=== PATIENT | female | born 1960 | race Two or more races ===

== ENCOUNTER 2018-03-23 04:30 | Emergency (ER) | payer SELFPAY ==
[2018-03-23] MEDS ORDERED: NORMAL SALINE 1000 ML 1,000 ML IV ONE ×2 (05:07→06:26)
[2018-03-23] MEDS ORDERED: ONDANSETRON HCL INJ/PF 4 MG/2 ML SDV IV ONE ×2 (05:07→07:03)
[2018-03-23] MEDS ORDERED: MORPHINE SULFATE 10 MG/ML INJ IV ONE (05:07)
--- NOTE | 2018-03-23 05:13 | ER Document Report ---
ED GI/ - General Chief Complaint: Abdominal Pain Stated Complaint: ABDOMINAL PAIN Time Seen by Provider: 03/23/18 05:00 Mode of Arrival: Ambulatory Information source: Patient Notes: Patient is a 57-year-old female with past medical history of hypertension hyperlipidemia who presents with chief complaint of right flank pain that radiates into her right lower quadrant. Patient reports the pain started yesterday morning, has been constant with waves of increased intensity. Patient reports she has vomited approximately 4 times since its onset, has also had one episode of diarrhea yesterday. Patient reports she has been having dysuria and difficulty passing urine for a couple of days, states she took Azo with no relief. Patient reports chills but denies fevers. Patient denies any history of kidney stones. Patient has no history of any abdominal surgeries. TRAVEL OUTSIDE OF THE [place] IN LAST 30 DAYS: No - Related Data Allergies/Adverse Reactions: No Known Allergies Allergy (Verified 03/23/18 04:31) Past Medical History - General Information source: Patient - Social History Smoking Status: Never Smoker Frequency of alcohol use: None Drug Abuse: None Family History: Reviewed & Not Pertinent - Past Medical History Cardiac Medical History: Reports: Hx Hypercholesterolemia, Hx Hypertension Surgical Hx: Negative - Immunizations Immunizations up to date: Yes Review of Systems - Review of Systems Constitutional: Chills. denies: Fever, Weakness EENT: No symptoms reported Cardiovascular: No symptoms reported Respiratory: No symptoms reported Gastrointestinal: Abdominal pain, Diarrhea, Nausea, Vomiting. denies: Blood streaked bowels, Blood in vomit Genitourinary: Dysuria, Flank pain Female Genitourinary: No symptoms reported Musculoskeletal: No symptoms reported Skin: No symptoms reported Hematologic/Lymphatic: No symptoms reported Neurological/Psychological: No symptoms reported Physical Exam - Vital signs Vitals: Temp Pulse Resp BP Pulse Ox 98.4 F 71 20 172/77 H 100 03/23/18 04:31 03/23/18 04:31 03/23/18 04:31 03/23/18 04:31 03/23/18 04:31 - Notes Notes: PHYSICAL EXAMINATION: GENERAL: Well appearing, well-nourished and in moderate distress. HEAD: Atraumatic, normocephalic. EYES: Pupils equal round and reactive to light, extraocular movements intact, conjunctiva are normal. ENT: Moist mucous membranes. NECK: Normal range of motion, supple without lymphadenopathy LUNGS: Breath sounds clear to auscultation bilaterally and equal. No wheezes rales or rhonchi. HEART: Regular rate and rhythm without murmurs ABDOMEN: Soft, nondistended abdomen. Tenderness to palpation from mid right flank to right lower quadrant. No guarding, no rebound. No masses appreciated. Female : CVA tenderness to right side Musculoskeletal: Normal range of motion, no pitting or edema. No cyanosis. NEUROLOGICAL: Cranial nerves grossly intact. Normal speech. Normal sensory, motor exams PSYCH: Normal mood, normal affect. SKIN: Warm, Dry, normal turgor, no rashes or lesions noted. Course - Re-evaluation Re-evalutation: CBC with mild leukocytosis. CMP is unremarkable. Urinalysis reveals moderate blood. CT renal stone study reveals a 0.4 cm renal calculi at the right UVJ. There is mild hydroureter but no hydronephrosis. Patient is feeling much improved after administration of IV fluids and pain medications. Patient will be discharged home in stable condition. - Vital Signs Vital signs: Temp Pulse Resp BP Pulse Ox 98.0 F 68 16 114/54 L 96 03/23/18 08:08 03/23/18 08:08 03/23/18 08:08 03/23/18 08:08 03/23/18 08:08 - Laboratory Result Diagrams: 03/23/18 05:00 03/23/18 05:00 Laboratory results interpreted by me: 03/23/18 03/23/18 03/23/18 05:00 05:00 05:45 WBC 13.1 H Seg Neutrophils % 87.6 H Lymphocytes % 8.2 L Absolute Neutrophils 11.5 H Glucose 129 H Calcium 10.5 H Urine Ketones TRACE H Urine Blood MODERATE H Discharge - Discharge Clinical Impression: Kidney stone on right side, Pelvic mass Vomiting Qualifiers: Vomiting type: unspecified Vomiting Intractability: non-intractable Nausea presence: with nausea Qualified Code(s): R11.2 - Nausea with vomiting, unspecified Condition: Stable Disposition: HOME, SELF-CARE Additional Instructions: Kidney Stone You are passing or have passed a kidney stone. These stones are usually due to increased calcium or uric acid concentrations in your urine. Stones within the kidney itself are not painful. The pain occurs as the stone leaves the kidney to pass down the long tube, called the ureter, leading to the bladder. If the stone is small, it will usually pass by itself. Most patients can pass the stone at home. You will usually receive medications for pain, nausea or vomiting, and sometimes a medication to assist in passing the kidney stone. However, if the pain is very severe or if vomiting prevents you from taking oral pain medications, you may need to return for further treatment. Drink three or four quarts of fluids per day. You will be given pain medication (if needed) and urine strainers. Strain all your urine to see if the stone passes. If your doctor has asked you to bring the stone in for analysis, return with the stone once it has passed. Return if pain or vomiting become severe, if you develop a high fever, if you are unable to pass your urine, or if other unusual symptoms occur. Please take the Flomax 1 time per day, you have already had your dose for this morning. Please take ibuprofen 600 mg every 6 hours for the next few days. Please use the narcotic pain medication only for severe pain. Use the nausea medication as needed, you can take the Zofran under the tongue or use the Phenergan suppositories for any nausea or vomiting. The kidney stone should pass soon. As discussed a mass was found in the pelvic region on the CAT scan that was performed. I spoke with Dr. Harp at [facility] and he has agreed to see you in the office Sunday or Sunday. Please call him in the morning on Sunday let them know you are seen in the emerge since he department need an ER follow-up for a large pelvic mass. Please feel free to return to the emergency department if you develop any worsening symptoms over the weekend, we are happy to reevaluate you at any time. [facility] [address] [place] [id number] Prescriptions: Morphine Sulfate [Morphine Ir 15 mg Tablet] 15 mg PO Q4HP PRN #12 tablet PRN Reason: Ondansetron [Zofran Odt 4 mg Tablet] 1 - 2 tab PO Q4H PRN #15 tab.rapdis PRN Reason: For Nausea/Vomiting Tamsulosin HCl [Flomax 0.4 mg Cap.sr] 0.4 mg PO DAILY #7 cap.sr.24h Referrals: POLY HARP MD [ACTIVE STAFF] - Follow up as needed
[2018-03-23 05:28] LABS: ABSOLUTE EOSINOPHILS # (AUTO) 0.1 10^3/uL (0.0-0.6); ABSOLUTE LYMPHOCYTES (AUTO) 1.1 10^3/uL (0.5-4.7); ABSOLUTE MONOCYTES (AUTO) 0.5 10^3/uL (0.1-1.4); ABSOLUTE NEUT (AUTO) 11.5 10^3/uL (1.7-8.2); BASOPHILS % (AUTO) 0.2 % (0-2); EOSINOPHILS % (AUTO) 0.4 % (0-6); HEMATOCRIT 42.2 % (36.0-47.0); HEMOGLOBIN 14.6 g/dL (12.0-15.5); LYMPHOCYTES % (AUTO) 8.2 % (13-45); MEAN CORPUSCULAR HEMOGLOBIN 29.2 pg (27.0-33.4); MEAN CORPUSCULAR HGB CONC 34.7 g/dL (32.0-36.0); MEAN CORPUSCULAR VOLUME 84 fl (80-97); MONOCYTES % (AUTO) 3.6 % (3-13); PLATELET COUNT 389 10^3/uL (150-450); RED BLOOD COUNT 5.01 10^6/uL (3.72-5.28); RED CELL DISTRIBUTION WIDTH 13.1 % (11.5-14.0); SEGMENTED NEUTROPHILS % (AUTO) 87.6 % (42-78); TOTAL CELLS COUNTED % (AUTO) 100 %; WHITE BLOOD COUNT 13.1 10^3/uL (4.0-10.5)
[2018-03-23] MEDS ORDERED: KETOROLAC TROMETHAMINE INJ/PF 30 MG/1 ML SDV IV ONE (05:48)
[2018-03-23 06:11] LABS: ALANINE AMINOTRANSFERASE 33 U/L (9-52); ALBUMIN 4.7 g/dL (3.5-5.0); ALKALINE PHOSPHATASE 113 U/L (38-126); ANION GAP 14 (5-19); ASPARTATE AMINO TRANSFERASE 28 U/L (14-36); BILIRUBIN,DIRECT 0.3 mg/dL (0.0-0.4); BILIRUBIN,TOTAL 0.4 mg/dL (0.2-1.3); BLOOD UREA NITROGEN 16 mg/dL (7-20); CALCIUM 10.5 mg/dL (8.4-10.2); CARBON DIOXIDE 25 mmol/L (22-30); CHLORIDE 105 mmol/L (98-107); GLUCOSE 129 mg/dL (75-110); LIPASE 79.9 U/L (23-300); POTASSIUM 4.2 mmol/L (3.6-5.0); SODIUM 144.4 mmol/L (137-145)
[2018-03-23 06:12] LABS: APPEARANCE,URINE CLEAR; BILIRUBIN,URINE NEGATIVE (NEGATIVE); CALCIUM OXALATE CRYSTALS,URINE RARE /HPF; COLOR,URINE YELLOW; GLUCOSE, URINE NEGATIVE (NEGATIVE); KETONES,URINE TRACE mg/dL (NEGATIVE); LEUKOCYTE ESTERASE,URINE NEGATIVE (NEGATIVE); NITRITE,URINE NEGATIVE (NEGATIVE); PROTEIN,URINE NEGATIVE (NEGATIVE); URINE SPECIFIC GRAVITY 1.015; UROBILINOGEN,URINE NEGATIVE mg/dL (<2.0)
--- NOTE | 2018-03-23 06:26 | RADIOLOGY REPORT (SQ) ---
EXAM DESCRIPTION: CT ABDOMEN WITHOUT IV CONTRAST COMPLETED DATE/TME: 03/23/2018 05:49 CLINICAL HISTORY: Right lower quadrant pain. COMPARISON: None Available. TECHNIQUE: CT of the abdomen and pelvis without IV contrast. Evaluation of the solid organs and vasculature is suboptimal due to lack of IV contrast. DLP: 835.58 mGy-cm FINDINGS: Lung Bases: The visualized lung bases are clear. Bones: No destructive bone lesions identified. Abdomen: Liver: The liver has normal size and density. Gallbladder: Calcified gallstones identified. No pericholecystic inflammatory change. Spleen, Pancreas, and Adrenal Glands: The spleen, pancreas, and adrenal glands are unremarkable. Kidneys: There is a 0.4 cm obstructing calculus at the right UVJ producing moderate right hydroureter and hydronephrosis. No left-sided hydronephrosis. Vasculature: The aorta and IVC have normal caliber and position. Stomach: The stomach and duodenum have normal course. Other: No free intraperitoneal air. No free fluid or lymphadenopathy. Pelvis: Bladder: Urinary bladder is unremarkable. Bowel: No dilated loops of large or small bowel. Scattered diverticula of the colon without pericolic inflammatory change. Appendix: Normal appendix. Pelvis: Likely fibroid uterus. There is a large heterogeneous mass arising from the right pelvis and extending into the mid right abdomen measuring at least 16.6 x 10.5 x 12.4 cm. This structure as well as solid and cystic components. Additionally posterior to the uterus there is a second heterogeneous mass measuring at least 8.5 x 7.4 cm in greatest axial dimensions. This also has both solid and cystic component. No definite pelvic lymphadenopathy identified. IMPRESSION: 1. There is a 0.4 cm obstructing calculus at the right UVJ producing moderate right hydroureter and hydronephrosis. 2. There are 2 heterogeneous pelvic masses containing both solid and cystic components. The largest of these measures at least 16.6 cm in greatest dimension. These are concerning for benign or malignant ovarian neoplasm. Contrast-enhanced pelvic MRI and gynecological consultation recommended. 3. Cholelithiasis. Urgent finding reported to HAMMERER TAB Ayb Hodgson at 03/23/2018 5:24 AM CDT This exam was performed according to our departmental dose-optimization program, which includes automated exposure control, adjustment of the mA and/or kV according to patient size and/or use of iterative reconstruction technique.
[2018-03-23] MEDS ORDERED: HYDROMORPHONE HCL INJ/PF 2 MG/ML AMPULE IV ONE (06:27)
[2018-03-23] MEDS ORDERED: TAMSULOSIN HCL 0.4 MG CAP.SR.24H PO ONE (06:57)
[2018-03-23] MEDS ORDERED: HYDROCODONE/ACETAMINOPHEN 5-325 MG (6 TAB/ER DISP) PO PRN (06:57)
[2018-03-23] MEDS ORDERED: IBUPROFEN 600 MG TABLET PO ONE (06:57)
[2018-03-23] MEDS ORDERED: OXYCODONE-ACETAMINOPHEN 5-325 MG TABLET PO ONE (06:59)
[2018-03-23] MEDS ORDERED: ONDANSETRON ODT 4 MG TAB (6 TAB/ER DISP) PO PRN (06:59)
[2018-03-23] MEDS ORDERED: PROMETHAZINE HCL 25 MG SUPP (4 SUPP/ER DISP) PR ONE (07:03)
[2018-03-23] MEDS ORDERED: PROCHLORPERAZINE EDISYLATE INJ 10 MG/2 ML VIAL IV ONE (08:08)
[2018-03-23 08:09] VITALS: BP 114/54
== END 2018-03-23 08:53 | disposition home or self-care (01) ==
LOC: ER 04:30
DX: N20.0 Calculus of kidney (principal); R19.00 Intra-abdominal and pelvic swelling, mass and lump, unspecified site; R11.2 Nausea with vomiting, unspecified; R68.83 Chills (without fever); R10.9 Unspecified abdominal pain; I10 Essential (primary) hypertension; E78.00 Pure hypercholesterolemia, unspecified
CPT/HCPCS: 96376; 99284; 96361; 96374; 96375; 36415; 87086; 83690; 85025; 80053; 81001; 76380; J3490; J1885; J2270; J1170; J0780; J2405; J7030

== ENCOUNTER 2020-01-05 19:05 | Emergency (ER) | payer SELFPAY ==
[2020-01-05] MEDS ORDERED: KETOROLAC TROMETHAMINE INJ/PF 30 MG/1 ML SDV IV ONE (19:50)
--- NOTE | 2020-01-05 20:01 | ER Document Report ---
ED GI/ - General Chief Complaint: Possible Kidney Stone Stated Complaint: POSSIBLE KIDNEY STONE Time Seen by Provider: 01/05/20 19:35 Primary Care Provider: [facility] [Provider Group] - Follow up as needed MALU BRENNER MD [Primary Care Provider] - Follow up as needed Notes: HPI: 59-year-old female who presents today with the onset about 3 days ago some intermittent left flank pain radiating to her left abdomen. She describes it as "sharp". No obvious aggravating relieving factors. Positive dysuria. No fevers or vomiting. History of kidney stones x2 in the past without extraction or lithotripsy. Currently pain is a 4 out of 10. ROS: See HPI All other review of systems reviewed and otherwise negative Reviewed vital signs and nursing note as charted by RN. PHYSICAL EXAM: CONSTITUTIONAL: Alert and oriented and responds appropriately to questions. Well-appearing; well-nourished HEAD: Normocephalic; atraumatic CARD: Regular rate and rhythm; no murmurs; symmetric distal pulses RESP: Normal chest excursion without splinting or tachypnea; breath sounds clear and equal bilaterally; no wheezes, no rhonchi, no rales ABD/GI: Normal bowel sounds; non-distended; soft, minimally tender to palpation of the left lower quadrant without rebound or guarding. No palpable masses BACK: The back appears normal and is non-tender to palpation EXT: Normal ROM in all joints; non-tender to palpation; no edema SKIN: No acute lesions noted NEURO: CN 2-12 intact; 5/5 bilateral upper and lower extremity strength with sensation intact to light touch PSYCH: The patient's mood and manner are appropriate. Grooming and personal hygiene are appropriate. TRAVEL OUTSIDE OF THE [place] IN LAST 30 DAYS: No - Related Data Allergies/Adverse Reactions: No Known Allergies Allergy (Verified 03/23/18 04:31) Past Medical History - Social History Smoking Status: Unknown if Ever Smoked Family History: Reviewed & Not Pertinent - Past Medical History Cardiac Medical History: Reports: Hx Hypercholesterolemia, Hx Hypertension Renal/ Medical History: Denies: Hx Peritoneal Dialysis - Immunizations Immunizations up to date: Yes Physical Exam - Vital signs Vitals: Temp Pulse Resp BP Pulse Ox 98.7 F 103 H 17 123/72 96 01/05/20 19:21 01/05/20 19:21 01/05/20 19:21 01/05/20 19:21 01/05/20 19:21 Course - Re-evaluation Re-evalutation: 01/05/20 20:00 Given the above history and physical examination with the patient's history, I will obtain a renal colic CT scan as well as basic labs and urine analysis. I would like to assess initially for the possibility of kidney stone. 01/05/20 21:[address] scan as recorded. Nitrite positive with minimal white blood cells in the urine. Normal white blood cell count. No fevers or vomiting. 1 g of Rocephin has been provided. I will start the patient on a course of antibiotics and pain medications with discharge home with follow-up with urology. - Vital Signs Vital signs: Temp Pulse Resp BP Pulse Ox 98.7 F 103 H 17 123/72 96 01/05/20 20:00 01/05/20 19:21 01/05/20 19:21 01/05/20 19:21 01/05/20 19:21 - Laboratory Result Diagrams: 01/05/20 19:57 01/05/20 19:57 Laboratory results interpreted by me: 01/05/20 01/05/20 19:55 19:57 Glucose 113 H ALT 38 H Urine Blood SMALL H Urine Nitrite POSITIVE H Urine Urobilinogen 4.0 H Discharge - Discharge Clinical Impression: Kidney stone on left side Condition: Good Disposition: HOME, SELF-CARE Additional Instructions: Come back immediately with any increased pain, change in location or quality of pain, fevers or vomiting, or any other acute problems. Please make sure that you follow-up with the primary care physician and urologist as discussed. You may take 600 mg of ibuprofen every 6 hours in addition to the pain medications that we have provided. Please make sure that she take the antibiotics as prescribed. Prescriptions: Cephalexin Monohydrate [Keflex 500 mg Capsule] 500 mg PO Q6H 5 Days capsule Cephalexin Monohydrate [Keflex 500 mg Capsule] 500 mg PO Q6H 5 Days capsule Cephalexin Monohydrate [Keflex 500 mg Capsule] 500 mg PO Q6H 5 Days capsule Cephalexin Monohydrate [Keflex 500 mg Capsule] 500 mg PO Q6H 5 Days capsule Cephalexin Monohydrate [Keflex 500 mg Capsule] 500 mg PO Q6H 5 Days capsule Cephalexin Monohydrate [Keflex 500 mg Capsule] 500 mg PO Q6H 5 Days capsule Cephalexin Monohydrate [Keflex 500 mg Capsule] 500 mg PO Q6H 5 Days capsule Hydrocodone/Acetaminophen [Jacobson 5-325 mg Tablet] 1 tab PO Q8 #10 tablet Referrals: MALU BRENNER MD [Primary Care Provider] - Follow up as needed [facility] [Provider Group] - Follow up as needed
[2020-01-05 20:07] LABS: ABSOLUTE EOSINOPHILS # (AUTO) 0.2 10^3/uL (0.0-0.6); ABSOLUTE MONOCYTES (AUTO) 0.5 10^3/uL (0.1-1.4); BASOPHILS % (AUTO) 0.6 % (0-2); MEAN CORPUSCULAR HEMOGLOBIN 29.1 pg (27.0-33.4); TOTAL CELLS COUNTED % (AUTO) 100 %
[2020-01-05 20:12] LABS: APPEARANCE,URINE CLEAR; BILIRUBIN,URINE NEGATIVE (NEGATIVE); GLUCOSE, URINE NEGATIVE (NEGATIVE); KETONES,URINE NEGATIVE (NEGATIVE); LEUKOCYTE ESTERASE,URINE NEGATIVE (NEGATIVE); NITRITE,URINE POSITIVE (NEGATIVE); PROTEIN,URINE NEGATIVE (NEGATIVE); URINE SPECIFIC GRAVITY 1.017
[2020-01-05 20:14] LABS: COLOR,URINE YELLOW
[2020-01-05] MEDS: MORPHINE SULFATE 10 MG/ML INJ IV ONE ×2 (20:17→20:21)
[2020-01-05 20:18] LABS: ABSOLUTE LYMPHOCYTES (AUTO) 1.8 10^3/uL (0.5-4.7); EOSINOPHILS % (AUTO) 2.7 % (0-6); HEMATOCRIT 40.9 % (36.0-47.0); HEMOGLOBIN 13.8 g/dL (12.0-15.5); LYMPHOCYTES % (AUTO) 23.7 % (13-45); MEAN CORPUSCULAR HGB CONC 33.8 g/dL (32.0-36.0); MEAN CORPUSCULAR VOLUME 86 fl (80-97); MONOCYTES % (AUTO) 6.2 % (3-13); PLATELET COUNT 351 10^3/uL (150-450); RED BLOOD COUNT 4.77 10^6/uL (3.72-5.28); RED CELL DISTRIBUTION WIDTH 13.2 % (11.5-14.0); SEGMENTED NEUTROPHILS % (AUTO) 66.8 % (42-78); WHITE BLOOD COUNT 7.5 10^3/uL (4.0-10.5)
[2020-01-05] MEDS ORDERED: CEFTRIAXONE 1 GM/D5W RTU 1 GM/50 ML RTUPB IV ONE (20:19)
[2020-01-05 20:29] LABS: ALBUMIN 4.4 g/dL (3.5-5.0); ALKALINE PHOSPHATASE 96 U/L (38-126); ANION GAP 9 (5-19); ASPARTATE AMINO TRANSFERASE 34 U/L (14-36); BILIRUBIN,TOTAL 0.3 mg/dL (0.2-1.3); BLOOD UREA NITROGEN 15 mg/dL (7-20); CALCIUM 10.2 mg/dL (8.4-10.2); CARBON DIOXIDE 27 mmol/L (22-30); CHLORIDE 105 mmol/L (98-107); GLUCOSE 113 mg/dL (75-110); TOTAL PROTEIN 7.5 g/dL (6.3-8.2)
[2020-01-05] MEDS ORDERED: MORPHINE SULFATE 10 MG/ML INJ IV ONE (20:43)
--- NOTE | 2020-01-05 21:05 | RADIOLOGY REPORT (SQ) ---
EXAM DESCRIPTION: CLINICAL HISTORY: 59 years Female 35; left flank COMPARISON: Renal ultrasound 03/23/2018. TECHNIQUE: Axial images without IV or oral contrast. Sagittal coronal reconstruction. This exam was performed according to our departmental dose-optimization program, which includes automated exposure control, adjustment of the mA and/or kV according to patient size and/or use of iterative reconstruction technique.. FINDINGS: Lung bases are unremarkable. Fatty liver. Gallbladder filled with multiple stones. No gallbladder distention or wall thickening. No biliary dilatation. Spleen, pancreas, adrenal glands, aorta and para-aortic regions are unremarkable. Right kidney is unremarkable. Left kidney demonstrates minimal hydronephrosis. There is also minimal left hydroureter. Suspected tiny approximately 1 mm stone nonobstructing stone in the lower pole of the left kidney. Series 601 image 52. No suspicious bowel or peritoneal abnormalities. CT of the pelvis demonstrates approximately 1.5 mm calcification calcification projecting in the expected location of the left UV junction. The distal left ureter is not clearly identified. Urinary bladder is otherwise unremarkable. Absent uterus. Surgical clips in the right adnexa. Bowel loops are unremarkable. No free fluid or adenopathy. IMPRESSION: 1. Minimal left hydronephrosis and left proximal hydroureter. Distal left ureter not definitely identified. There is a tiny stone in the expected location of the left UV junction. There is a tiny nonobstructing left lower pole kidney stone. 2. Multiple gallstones in a contracted gallbladder. 3. Fatty liver.
[2020-01-05 21:56] VITALS: BP 105/60
== END 2020-01-05 21:57 | disposition home or self-care (01) ==
LOC: ER 19:05
DX: N13.2 Hydronephrosis with renal and ureteral calculous obstruction (principal); K80.20 Calculus of gallbladder without cholecystitis without obstruction; K76.0 Fatty (change of) liver, not elsewhere classified; R30.0 Dysuria; R10.9 Unspecified abdominal pain; R10.814 Left lower quadrant abdominal tenderness
CPT/HCPCS: 99284; 96375; 96365; 36415; 85025; 80053; 81001; 74176; J1885; J0696; J2270

== ENCOUNTER → 2020-05-24 | Outpatient (CLI) | payer OTHER ==
--- NOTE | 2020-05-24 15:38 | RADIOLOGY REPORT (SQ) ---
"EXAM DESCRIPTION: KNEE RIGHT 2 VIEWS IMAGES COMPLETED DATE/TIME: 05/24/2020 3:11 pm REASON FOR STUDY: M25.561 PAIN IN RIGHT KNEE R06.02 SHORTNESS OF BREATH M25.561 PAIN IN RIGHT KNEE COMPARISON: None. NUMBER OF VIEWS: Two views. TECHNIQUE: AP and lateral radiographic images acquired of the right knee. LIMITATIONS: None. FINDINGS: MINERALIZATION: Normal. BONES: No acute fracture or dislocation. No worrisome bone lesions. No significant osteophytes. JOINT: No effusion. No chondrocalcinosis. OTHER: No other significant finding. IMPRESSION: NEGATIVE STUDY OF THE RIGHT KNEE. NO EXPLANATION FOR PAIN. TECHNICAL DOCUMENTATION: JOB ID: [id number] 2010 [employer] | [employer]- All Rights Reserved Reading location - IP/workstation name: [email or web address]"
--- NOTE | 2020-05-24 15:39 | RADIOLOGY REPORT (SQ) ---
EXAM DESCRIPTION: CHEST 2 VIEWS IMAGES COMPLETED DATE/TIME: 05/24/2020 3:11 pm REASON FOR STUDY: R06.02 SHORTNESS OF BREATH COMPARISON: None. EXAM PARAMETERS: NUMBER OF VIEWS: two views TECHNIQUE: Digital Frontal and Lateral radiographic views of the chest acquired. RADIATION DOSE: NA LIMITATIONS: none FINDINGS: LUNGS AND PLEURA: Focal asymmetric opacity in the left upper lobe overlying the anterior 1 st rib and clavicle most likely represents confluence of shadows. This also overlies the 8th posteri or rib. There is no consolidation. No effusions or pneumothorax. MEDIASTINUM AND HILAR STRUCTURES: No masses or contour abnormalities. HEART AND VASCULAR STRUCTURES: Heart normal size. No evidence for failure. BONES: No acute findings. HARDWARE: None in the chest. OTHER: No other significant finding. IMPRESSION: NO ACUTE RADIOGRAPHIC FINDING IN THE CHEST. TECHNICAL DOCUMENTATION: JOB ID: [id number] 2010 [employer] - [email or web address]- All Rights Reserved Reading location - IP/workstation name: [email or web address]
== END ==
LOC: RAD 14:50
PROVIDERS: ATTEND Nurse Practitioner Family
DX: R06.02 Shortness of breath (principal); M25.561 Pain in right knee
CPT/HCPCS: 71046

== ENCOUNTER 2020-06-15 11:54 | Emergency (ER) | payer OTHER ==
--- NOTE | 2020-06-15 13:04 | ER Document Report ---
ED Medical Screen (RME) - General Chief Complaint: Chest Pain > 30 Stated Complaint: DIFFICULTY BREATHING,CHEST PRESSURE Time Seen by Provider: 06/15/20 12:57 Primary Care Provider: KIT MEREDITH FNP [Primary Care Provider] - Follow up as needed Mode of Arrival: Ambulatory Information source: Patient Notes: 59-year-old female presents to ED for chest pressure feels like somebody squeezing her short of breath. She does have asthma and states her asthma medicines are not doing her any good for this pain and pressure patient is alert and oriented. Lungs are clear at this time. Chest pain protocol and have her seen by another provider. TRAVEL OUTSIDE OF THE [place] IN LAST 30 DAYS: No - Related Data Allergies/Adverse Reactions: No Known Allergies Allergy (Verified 03/23/18 04:31) Past Medical History - Past Medical History Cardiac Medical History: Reports: Hx Hypercholesterolemia, Hx Hypertension Renal/ Medical History: Denies: Hx Peritoneal Dialysis - Immunizations Immunizations up to date: Yes Physical Exam - Vital signs Vitals: Temp Pulse Resp BP Pulse Ox 98.4 F 56 L 18 112/65 98 06/15/20 12:11 06/15/20 12:11 06/15/20 12:11 06/15/20 12:11 06/15/20 12:11 Course - Vital Signs Vital signs: Temp Pulse Resp BP Pulse Ox 98.4 F 56 L 18 112/65 98 06/15/20 12:11 06/15/20 12:11 06/15/20 12:11 06/15/20 12:11 06/15/20 12:11 Doctor's Discharge - Discharge Referrals: KIT MEREDITH FNP [Primary Care Provider] - Follow up as needed
[2020-06-15 13:39] LABS: ABSOLUTE EOSINOPHILS # (AUTO) 0.1 10^3/uL (0.0-0.6); ABSOLUTE LYMPHOCYTES (AUTO) 1.5 10^3/uL (0.5-4.7); ABSOLUTE MONOCYTES (AUTO) 0.4 10^3/uL (0.1-1.4); ABSOLUTE NEUT (AUTO) 4.7 10^3/uL (1.7-8.2); BASOPHILS % (AUTO) 0.4 % (0-2); EOSINOPHILS % (AUTO) 1.6 % (0-6); HEMATOCRIT 44.1 % (36.0-47.0); HEMOGLOBIN 14.9 g/dL (12.0-15.5); LYMPHOCYTES % (AUTO) 22.1 % (13-45); MEAN CORPUSCULAR HEMOGLOBIN 29.2 pg (27.0-33.4); MEAN CORPUSCULAR HGB CONC 33.9 g/dL (32.0-36.0); MEAN CORPUSCULAR VOLUME 86 fl (80-97); MONOCYTES % (AUTO) 6.2 % (3-13); PLATELET COUNT 380 10^3/uL (150-450); RED CELL DISTRIBUTION WIDTH 13.2 % (11.5-14.0); SEGMENTED NEUTROPHILS % (AUTO) 69.7 % (42-78); TOTAL CELLS COUNTED % (AUTO) 100 %; WHITE BLOOD COUNT 6.7 10^3/uL (4.0-10.5)
[2020-06-15 13:56] LABS: ALBUMIN 4.9 g/dL (3.5-5.0); ALKALINE PHOSPHATASE 107 U/L (38-126); ANION GAP 9 (5-19); ASPARTATE AMINO TRANSFERASE 32 U/L (14-36); BILIRUBIN,DIRECT 0.1 mg/dL (0.0-0.4); BILIRUBIN,TOTAL 0.5 mg/dL (0.2-1.3); BLOOD UREA NITROGEN 16 mg/dL (7-20); CALCIUM 11.1 mg/dL (8.4-10.2); CARBON DIOXIDE 28 mmol/L (22-30); CHLORIDE 104 mmol/L (98-107); GLUCOSE 101 mg/dL (75-110); POTASSIUM 5.1 mmol/L (3.6-5.0); TOTAL PROTEIN 8.2 g/dL (6.3-8.2)
--- NOTE | 2020-06-15 15:46 | ER Document Report ---
ED General - General Chief Complaint: Chest Pain > 30 Stated Complaint: DIFFICULTY BREATHING,CHEST PRESSURE Time Seen by Provider: 06/15/20 12:57 Primary Care Provider: KIT MEREDITH FNP [NO LOCAL MD] - Follow up as needed Mode of Arrival: Ambulatory Information source: Patient Notes: Patient is a 59-year-old female presenting to the emergency department chief co mplaint of chest pain. Patient states that it started about 9 or 10:00 this morning and did not subside. Patient was dizziness and near syncopal during the worst of the chest pain. Patient reports shortness of breath. Patient denies travel history trauma history sick contacts no recent change in medications. Patient does have a prior history of asthma states this is nothing like her asthma attacks. TRAVEL OUTSIDE OF THE [place] IN LAST 30 DAYS: No - HPI Onset: This morning Onset/Duration: Sudden, Persistent Quality of pain: Pressure, Sharp Severity: Severe Pain Level: 4 Associated symptoms: Nausea, Shortness of breath Exacerbated by: Denies Relieved by: Denies Similar symptoms previously: No Recently seen / treated by doctor: No - Related Data Allergies/Adverse Reactions: No Known Allergies Allergy (Verified 03/23/18 04:31) Home Medications: Fish Oil. Baby ASA. Albuterol. Lisinopril Past Medical History - General Information source: Patient - Social History Smoking Status: Former Smoker Chew tobacco use (# tins/day): No Frequency of alcohol use: Rare Drug Abuse: None Lives with: Spouse/Significant other Family History: CAD, CVA, Hypertension Patient has suicidal ideation: No Patient has homicidal ideation: No - Past Medical History Cardiac Medical History: Reports: Hx Hypercholesterolemia, Hx Hypertension Pulmonary Medical History: Reports: Hx Asthma Renal/ Medical History: Denies: Hx Peritoneal Dialysis Past Surgical History: Reports: Hx Hysterectomy - Immunizations Immunizations up to date: Yes Review of Systems - Review of Systems Notes: REVIEW OF SYSTEMS: CONSTITUTIONAL : Denies fever, chills, or sweats. Denies recent illness. EENT: Denies eye, ear, throat, or mouth pain or symptoms. Denies nasal or sinus congestion. CARDIOVASCULAR: Per HPI RESPIRATORY: Per HPI GASTROINTESTINAL: Denies abdominal pain. Denies nausea, vomiting, or diarrhea. Denies constipation. GENITOURINARY: Denies difficulty urinating, painful urination, burning, frequency, or blood in urine. MUSCULOSKELETAL: Denies neck or back pain or joint pain or swelling. SKIN: Denies rash or skin lesions. HEMATOLOGIC : Denies easy bruising or bleeding. NEUROLOGICAL: Per HPI PSYCHIATRIC: Denies suicidal or homicidal ideations 10 Systems are negative unless otherwise specified above Physical Exam - Vital signs Vitals: Temp Pulse Resp BP Pulse Ox 98.4 F 56 L 18 112/65 98 06/15/20 12:11 06/15/20 12:11 06/15/20 12:11 06/15/20 12:11 06/15/20 12:11 - Notes Notes: PHYSICAL EXAMINATION: GENERAL: Patient is a 59-year-old female presenting to the emergency department chief complaint of chest pain HEAD: Atraumatic, normocephalic. EYES: Pupils equal round and reactive to light, extraocular movements intact, sclera anicteric, conjunctiva are normal. ENT: nares patent, oropharynx clear without exudates. Moist mucous membranes. NECK: Normal range of motion, supple without lymphadenopathy, no appreciable JVD LUNGS: Lungs clear to auscultation bilaterally and equal. No wheezes rales or rhonchi. HEART: Regular rate and rhythm without murmurs ABDOMEN: Soft, nontender, normal bowel sounds. No guarding, no rebound. No masses appreciated. EXTREMITIES: Active full range of motion, no pitting or edema. No cyanosis. 2+ pulses x4 NEUROLOGICAL: No focal neurological deficits. Moves all extremities spontaneously and on command. SKIN: Warm, Dry, and intact. Normal turgor, no rashes or lesions noted. Course - Re-evaluation Re-evalutation: 06/15/20 18:42 Patient has been maintained on a quality assurance monitor final while in emergency department. Patient has remained stable. After reevaluation I discussed with the patient the laboratory EKG and radiologic results her risk factors and recommend the patient be admitted to the hospital for serial cardiac enzymes and most likely stress test in the morning. Patient does have a fairly significant family medical history is overweight and her presenting complaints is very suspicious heart score of 4. Patient has been consulted to the hospitalist for admission. Repeat troponin has been ordered. Aspirin and nitro have been given per protocol patient is currently asymptomatic. 06/15/20 19:03 Patient has been consulted to the hospitalist for admission however she states that she after evaluating the patient has been able to secure an outpatient stress test for the patient with cardiology she will wait for a second troponin and as long as that is negative the hospitalist will be discharging the patient. - Vital Signs Vital signs: Temp Pulse Resp BP Pulse Ox 98.4 F 56 L 15 117/67 100 06/15/20 12:57 06/15/20 12:11 06/15/20 15:01 06/15/20 15:01 06/15/20 15:03 - Laboratory Result Diagrams: 06/15/20 13:22 06/15/20 13:22 Laboratory results interpreted by me: 06/15/20 13:22 Potassium 5.1 H Calcium 11.1 H - Diagnostic Test Radiology reviewed: Image reviewed, Reports reviewed - EKG Interpretation by Me EKG shows normal: Sinus rhythm Rate: Normal Rhythm: NSR When compared to previous EKG there are: Previous EKG unavailable Additional EKG results interpreted by me: 06/15/20 18:38 EKG is interpreted by me shows sinus rhythm rate of 61 bpm there is some ST elevation computer is considering the secondary to early repolarization there is no ectopy there is no axis deviation and no old EKG available at this time for comparison. Discharge - Discharge Clinical Impression: Chest pain Qualifiers: Chest pain type: chest pain on breathing Qualified Code(s): R07.1 - Chest pain on breathing; R07.81 - Pleurodynia Condition: Stable Disposition: OTHER Admitting Provider: Iker (Hospitalist) Referrals: KIT MEREDITH FNP [NO LOCAL MD] - Follow up as needed
--- NOTE | 2020-06-15 17:31 | RADIOLOGY REPORT (SQ) ---
EXAM DESCRIPTION: CHEST 2 VIEWS IMAGES COMPLETED DATE/TIME: 06/15/2020 1:35 pm REASON FOR STUDY: Chest pain short of breath COMPARISON: 05/24/2020. EXAM PARAMETERS: NUMBER OF VIEWS: two views TECHNIQUE: Digital Frontal and Lateral radiographic views of the chest acquired. RADIATION DOSE: NA LIMITATIONS: none FINDINGS: LUNGS AND PLEURA: No opacities, masses or pneumothorax. No pleural effusion. MEDIASTINUM AND HILAR STRUCTURES: No masses or contour abnormalities. HEART AND VASCULAR STRUCTURES: Heart normal size. No evidence for failure. BONES: No acute findings. HARDWARE: None in the chest. OTHER: No other significant finding. IMPRESSION: NO ACUTE RADIOGRAPHIC FINDING IN THE CHEST. TECHNICAL DOCUMENTATION: JOB ID: [id number] 2010 [employer]- All Rights Reserved Reading location - IP/workstation name: [email or web address]
[2020-06-15] MEDS ORDERED: ASPIRIN 81 MG TABLET, CHEWABLE PO ONE ×2 (17:42)
[2020-06-15] MEDS ORDERED: NITROGLYCERIN 2% OINTMENT 1 GM PACKET TP ONE ×2 (17:42)
--- NOTE | 2020-06-15 18:59 | PDOC CONSULTATION ---
Consultation Consult Date: 06/15/20 Attending physician:: KAYLA PATEL Provider Consulted: LEONARD TRAYLOR Consult reason:: chest pain History of Present Illness Patient complains of: chest pain History of Present Illness: ROSALIO SANTOS is a 59 year old female, past medical history of HTN who came to the ED due to chest pain. Symptom started around 9 am when she felt mid sternal chest pain 10/10 felt like she was punched, non radiating lasted for a few minutes, resolved spontaneously. This was associated with chest tightness that is worse when she takes a deep breath. She has had similar episodes of the chest tightness in the past. No diaphoresis, no syncope, no palpitations. She is a non smoker, non alcoholic drinker, no coccaine or marijuana use. When she arrived at the ED chest pain has already resolved. She has a family history of CAD both sides. In the ED BP 117/67, HR 60, RR 17, T 96.8. EKG showed sinus rhythm, no ST elevation. First set of troponin negative. She was given aspirin, NTG. Hospitalist was asked to evaluate her for possible admission. Past Medical History Cardiac Medical History: Reports: Hyperlipidema, Hypertension Pulmonary Medical History: Reports: Asthma EENT Medical History: Reports: None Neurological Medical History: Reports: None Endocrine Medical History: Reports: None Denies: Diabetes Mellitus Type 2, Hyperthyroidism Renal/ Medical History: Denies: Chronic Kidney Disease Malignancy Medical History: Reports: None GI Medical History: Reports: None Musculoskeltal Medical History: Reports: None Skin Medical History: Reports: None Psychiatric Medical History: Reports: None Traumatic Medical History: Reports: None Hematology: Reports: None Infectious Medical History: Reports: None Past Surgical History Past Surgical History: Reports: Hysterectomy Social History Information Source: Patient Lives with: Family Smoking Status: Never Smoker Electronic Cigarette use?: No - Advance Directive Resuscitation Status: Full Code Family History Family History: CAD, CVA Parental Family History Reviewed: Yes Children Family History Reviewed: Yes Sibling(s) Family History Reviewed.: Yes Medication/Allergy Home Medications: Morphine Sulfate [Morphine Ir 15 mg Tablet] 15 mg PO Q4HP PRN #12 tablet 03/23/18 Ondansetron [Zofran Odt 4 mg Tablet] 1 - 2 tab PO Q4H PRN #15 tab.rapdis 03/23/18 Tamsulosin HCl [Flomax 0.4 mg Cap.sr] 0.4 mg PO DAILY #7 cap.sr.24h 03/23/18 Cephalexin Monohydrate [Keflex 500 mg Capsule] 500 mg PO Q6H 5 Days capsule 01/05/20 Cephalexin Monohydrate [Keflex 500 mg Capsule] 500 mg PO Q6H 5 Days capsule Cephalexin Monohydrate [Keflex 500 mg Capsule] 500 mg PO Q6H 5 Days capsule 01/05/20 Cephalexin Monohydrate [Keflex 500 mg Capsule] 500 mg PO Q6H 5 Days capsule 01/05/20 Cephalexin Monohydrate [Keflex 500 mg Capsule] 500 mg PO Q6H 5 Days capsule 01/05/20 Cephalexin Monohydrate [Keflex 500 mg Capsule] 500 mg PO Q6H 5 Days capsule 01/05/20 Cephalexin Monohydrate [Keflex 500 mg Capsule] 500 mg PO Q6H 5 Days capsule 01/05/20 Hydrocodone/Acetaminophen [Russell 5-325 mg Tablet] 1 tab PO Q8 #10 tablet 01/05/20 Allergies/Adverse Reactions: No Known Allergies Allergy (Verified 03/23/18 04:31) Review of Systems Constitutional: ABSENT: fatigue, fever(s), headache(s), weakness Eyes: ABSENT: visual disturbances Ears: ABSENT: hearing changes Cardiovascular: PRESENT: chest pain. ABSENT: dyspnea on exertion, orthropnea, palpitations Respiratory: PRESENT: cough, sputum Gastrointestinal: ABSENT: coffee ground emesis, heartburn, hematemesis Integumentary: ABSENT: as per HPI, diaphoresis Neurological: ABSENT: confusion, convulsions Physical Exam Vital Signs: Temp Pulse Resp BP Pulse Ox 98.4 F 56 L 15 117/67 100 06/15/20 12:57 06/15/20 12:11 06/15/20 15:01 06/15/20 15:01 06/15/20 15:03 Intake & Output 06/14/20 06/15/20 06/16/20 06:59 06:59 06:59 Weight 81.9 kg General appearance: PRESENT: no acute distress, cooperative Head exam: PRESENT: atraumatic, normocephalic Eye exam: PRESENT: EOMI, PERRLA Mouth exam: PRESENT: moist Neck exam: PRESENT: full ROM Respiratory exam: PRESENT: clear to auscultation maverick GI/Abdominal exam: PRESENT: normal bowel sounds, soft. ABSENT: rebound, tenderness Extremities exam: PRESENT: full ROM Musculoskeletal exam: PRESENT: full ROM Neurological exam: PRESENT: alert, awake, oriented to person, oriented to place, oriented to time, oriented to situation Skin exam: PRESENT: normal color Results Laboratory Results: 06/15/20 13:22 06/15/20 13:22 06/15/20 06/15/20 13:22 13:22 WBC 6.7 RBC 5.10 Hgb 14.9 Hct 44.1 MCV 86 MCH 29.2 MCHC 33.9 RDW 13.2 Plt Count 380 Seg Neutrophils % 69.7 Sodium 141.1 Potassium 5.1 H Chloride 104 Carbon Dioxide 28 Anion Gap 9 BUN 16 Creatinine 0.62 Est GFR ( Amer) > 60 Glucose 101 Calcium 11.1 H Total Bilirubin 0.5 AST 32 Alkaline Phosphatase 107 Total Protein 8.2 Albumin 4.9 06/15/20 13:22 Troponin I < 0.012 Impressions: Chest X-Ray 06/15/20 13:00 IMPRESSION: NO ACUTE RADIOGRAPHIC FINDING IN THE CHEST. Assessment and Plan - Diagnosis (1) Chest pain Qualifiers: Chest pain type: chest pain on breathing Qualified Code(s): R07.1 - Chest pain on breathing; R07.81 - Pleurodynia Is this a current diagnosis for this admission?: Yes Plan: - lasted few minutes, spontaneously resolved - Risk factor HTN and family history - BP 112/65, HR 63, RR 61. T 97. O2sat 98% on RA - Troponin <0.012 x 2 6 hrs apart - given aspirin and NTG in the ED - Heart score 4 low risk - no indication for admission. Chest pain unlikely ACS - will discharge on aspirin, NTG - cardio follow up for possible stress test outpatient - advised to come back to ED if chest pain recurs (2) HTN (hypertension) Qualifiers: Hypertension type: essential hypertension Qualified Code(s): I10 - Essential (primary) hypertension Is this a current diagnosis for this admission?: Yes Plan: - BP 113/65 - continue home meds - Plan Summary Summary: Patient can be discharged on aspirin and NTG with cardio follow up outpatient. I gave her number to Dr. Parra and he will contact her. - Time Time Spent with patient: 25-34 minutes Medications reviewed and adjusted accordingly: Yes Anticipated Discharge Disposition: Home, Self Care Anticipated Discharge Timeframe: within 24 hours
[2020-06-15 21:35] VITALS: BP 113/66
--- NOTE | 2020-06-15 23:49 | EKG REPORT ---
SEVERITY:- NORMAL ECG - SINUS RHYTHM : Confirmed by: Abigail Gilbert MD 15-Jun-2020 23:48:48
--- NOTE | 2020-06-16 10:10 | EKG REPORT ---
SEVERITY:- BORDERLINE ECG - SINUS RHYTHM NS T CAHNGES 1 AND aVL : Confirmed by: Abigail Gilbert MD 16-Jun-2020 10:10:01
== END 2020-06-15 21:25 | disposition other institution (70) ==
LOC: ER 11:54
DX: R07.1 Chest pain on breathing (principal); R07.81 Pleurodynia; R06.00 Dyspnea, unspecified; E78.00 Pure hypercholesterolemia, unspecified; I10 Essential (primary) hypertension
CPT/HCPCS: 36415; 71046; 80053; 82550; 84484; 85025; 93005; 93010; 99285

== ENCOUNTER → 2020-08-13 | Outpatient (CLI) | payer OTHER | LOC: OD 16:40 | PROVIDERS: ATTEND Internal Medicine Cardiovascular Disease | DX: R06.02 Shortness of breath (principal) | CPT/HCPCS: 36415; 83880 ==